=== PATIENT | female | born 1935 | race Asian ===

== ENCOUNTER → 2016-08-01 | Outpatient (CLI) | payer MEDICARE, OTHER ==
[~2016-08-01] VITALS: Ht 149.9 cm; Wt 57.0 kg
[~2016-08-01] MED LIST: ADV250 IH; ASPI-1093 PO; BACL10TA PO; CYCL30DR OU; LOSA25TA21 PO; METF500T4 PO
[2016-08-01 12:21] VITALS: BP 145/65
== END | disposition home or self-care (01) ==
LOC: SRCNTR 12:15
PROVIDERS: ATTEND Internal Medicine Critical Care Medicine
DX: J45.909 Unspecified asthma, uncomplicated (principal); E11.9 Type 2 diabetes mellitus without complications; I10 Essential (primary) hypertension
CPT/HCPCS: G0463

== ENCOUNTER → 2016-08-01 | Outpatient (CLI) | payer MEDICARE, OTHER ==
[~2016-08-01] MED LIST changes: +GADOBUTROL 1 MMOL/ML 10 ML VIAL IVP ONE
== END | disposition home or self-care (01) ==
LOC: RADPV 08:46
PROVIDERS: ATTEND Internal Medicine
DX: J45.909 Unspecified asthma, uncomplicated (principal); J98.11 Atelectasis; I70.0 Atherosclerosis of aorta; R55 Syncope and collapse; R29.818 Other symptoms and signs involving the nervous system; I67.82 Cerebral ischemia; G93.89 Other specified disorders of brain; M50.81 Other cervical disc disorders, high cervical region; M50.822 Other cervical disc disorders at C5-C6 level; M48.02 Spinal stenosis, cervical region; M25.78 Osteophyte, vertebrae; Z96.1 Presence of intraocular lens
CPT/HCPCS: 70544; 70553; 71020; 72141; A9585

== ENCOUNTER → 2016-08-06 | Outpatient (CLI) | payer MEDICARE, OTHER ==
[~2016-08-06] MED LIST changes: -GADOBUTROL 1 MMOL/ML 10 ML VIAL IVP ONE
== END | disposition home or self-care (01) ==
LOC: RESP 11:01
PROVIDERS: ATTEND Internal Medicine Critical Care Medicine
DX: J45.909 Unspecified asthma, uncomplicated (principal)
CPT/HCPCS: 94010; 94726; 94727; 94729